=== PATIENT | male | born 1935 ===

== ENCOUNTER 2018-05-12 14:05 | Inpatient (IN) | payer MEDICARE ==
[~2018-05-12] VITALS: Ht 172.7 cm; Wt 82.1 kg
--- NOTE | 2018-05-12 14:34 | NUR ---
PT IS IN ROOM #2A. DR BEASLEY EVALUATED THE PT.
[2018-05-12 14:40] LABS: BASOPHILS # (AUTO) 0.1 K/uL (0.0-8.0); BASOPHILS % (AUTO) 1.2 % (0.0-2.0); EOSINOPHILS # (AUTO) 0.2 K/uL (0.0-0.7); EOSINOPHILS % (AUTO) 2.6 % (0.0-7.0); HEMATOCRIT 36.2 % (36.7-47.1); HEMOGLOBIN 12.1 g/dL (12.5-16.3); LYMPHOCYTES # (AUTO) 0.8 K/uL (20.0-40.0); LYMPHOCYTES % (AUTO) 13.3 % (20.5-51.5); MEAN CORPUSCULAR HEMOGLOBIN 32.3 uug (23.8-33.4); MEAN CORPUSCULAR HGB CONC 33 g/dL (32.5-36.3); MEAN CORPUSCULAR VOLUME 96.7 fL (73.0-96.2); MONOCYTES # (AUTO) 0.6 K/uL (2.0-10.0); NEUTROPHILS # (AUTO) 4.6 K/uL (1.8-8.9); NEUTROPHILS % (AUTO) 73.9 % (38.5-71.5); PLATELET COUNT (AUTO) 277 K/uL (152-348); RED BLOOD CELL COUNT(AUTO) 3.74 MIL/uL (4.06-5.63); WHITE BLOOD COUNT (AUTO) 6.2 K/uL (3.6-10.2)
[2018-05-12 14:52] LABS: CARBON DIOXIDE 19 mmol/L (21-32); CHLORIDE 105 mmol/L (98-107); CREATININE 1.9 mg/dL (0.6-1.3); GLUCOSE 109 mg/dL (74-106); POTASSIUM 4.8 mmol/L (3.5-5.1); UREA NITROGEN, BLOOD 44 mg/dL (7-18)
[2018-05-12 14:57] LABS: ALANINE AMINOTRANSFERASE 40 U/L (16-63); ALKALINE PHOSPHATASE 135 U/L (50-136); ASPARTATE AMINOTRANSFERASE 41 U/L (15-37); BILIRUBIN,DIRECT 0.1 mg/dL (0.0-0.2); BILIRUBIN,TOTAL 0.4 mg/dL (0.2-1.0); TOTAL PROTEIN, SERUM 6.4 g/dL (6.4-8.2)
[2018-05-12] MEDS ORDERED: AMIO200T4 PO (15:10)
[2018-05-12] MEDS ORDERED: ASPI81TA31 PO (15:10)
[2018-05-12] MEDS ORDERED: BISO5TAB2 PO ×2 (15:11→15:12)
[2018-05-12] MEDS ORDERED: ATOR40TA PO (15:11)
[2018-05-12] MEDS ORDERED: CYAN10009 GT (15:12)
[2018-05-12] MEDS ORDERED: ALBU2.5V38 NEB (15:13)
[2018-05-12] MEDS ORDERED: SACU1TAB PO (15:13)
[2018-05-12] MEDS ORDERED: FURO-152 PO (15:14)
[2018-05-12] MEDS ORDERED: FINA5TAB11 PO (15:14)
[2018-05-12] MEDS ORDERED: RANO500T3 PO (15:15)
[2018-05-12] MEDS ORDERED: TIOT18CA3 INH (15:15)
[2018-05-12] MEDS ORDERED: PANT40TA2 PO (15:15)
[2018-05-12] MEDS ORDERED: TRAM50TA2 PO (15:16)
[2018-05-12] MEDS ORDERED: FEBU40TA PO (15:16)
[2018-05-12] MEDS ORDERED: TAMS0.4C34 PO (15:16)
[2018-05-12] MEDS ORDERED: ZOLP5TAB8 PO (15:17)
[2018-05-12] MEDS ORDERED: IV NS 1000 ML 1,000 ML IV PRN (15:54)
--- NOTE | 2018-05-12 15:57 | NUR ---
PT WAS TRANSFERED TO ROOM #222. REPORT WAS GIVEN TO CAROL M/Roberto.
--- NOTE | 2018-05-12 15:58 | NUR ---
PRECEIVED PATIENT FROM ER, ADMITTED TO ROOM 222. AAOX4 NO ACUTE DISTRESS NOTED. DESEAN SPAIN NP AWARE. ORIENTED TO UNIT. NURSING ADMISSION ASSESSMENTS TO BE DONE. AWAITING MD ORDERS. CALL LIGHT PEDRO ESPOSITO WILL CONTINUE TO MONITOR CLOSELY.
[2018-05-12] MEDS ORDERED: TEMAZEPAM 15 MG CAPSULE PO PRN (16:00)
[2018-05-12] MEDS ORDERED: HYDROCODONE/APAP 5-325MG TABLET PO PRN (16:00)
[2018-05-12] MEDS ORDERED: Z GUARD REMEDY PASTE 57 GM TUBE TOP PRN (16:00)
[2018-05-12] MEDS ORDERED: HYDROCODONE/APAP 10-325 MG TABLET PO PRN (16:00)
[2018-05-12] MEDS ORDERED: ACETAMINOPHEN 325 MG TABLET PO PRN (16:00)
[2018-05-12] MEDS ORDERED: ONDANSETRON 4 MG/2 ML VIAL IV PRN (16:00)
[2018-05-12 16:11] VITALS: BP 132/58
[2018-05-12] MEDS: ATORVASTATIN 40 MG TABLET PO SCH (17:33)
--- NOTE | 2018-05-12 18:34 | NUR ---
PATIENT IN BE AWAKE, APPEARS TO BE COMFORTABLE. SEEN AND EXAMINED BY DR. PARK. ORDERS NOTED AND CARRIED OUT. BM X 1 NO COMPLAINTS OF PAIN/DISCOMFORT. ALL NEEDS ATTENDED AND ANTICIPATED. CALL LIGHT WITHIN REACH. WILL CONTINUE TO MONITOR CLOSELY.
--- NOTE | 2018-05-12 19:00 | NUR ---
RECEIVED IN BED ALERT ORIENTED, NO COMPLAIN OF PAIN AT THIS TIME. CALL LIGHT WITHIN REACH.
[2018-05-12] MEDS: IPRATROPIUM BROMIDE 0.5 MG/2.5 ML NEBU NEB SCH (19:22)
[2018-05-12 19:35] VITALS: BP 131/65
[2018-05-12] MEDS: BISOPROLOL FUMARATE 5 MG TABLET PO SCH (20:22)
[2018-05-13] MEDS: IPRATROPIUM BROMIDE 0.5 MG/2.5 ML NEBU NEB SCH ×4 (00:17→19:03)
[2018-05-13 03:39] VITALS: BP 130/56
[2018-05-13] MEDS: PANTOPRAZOLE SODIUM 40 MG TABLET.DR PO SCH (06:13)
--- NOTE | 2018-05-13 06:21 | NUR ---
PATIENT SLEPT MOST OF THE NIGHT, CONT ON PAIN MANAGEMENT ON R GROIN AND LEGS, NO SOB NO CHEST PAIN NOTED, USES URINAL FOR BLADDER ELIMINATION, AND BRP, CALL LIGHT WITHIN REACH.
[2018-05-13 06:49] LABS: BASOPHILS # (AUTO) 0.1 K/uL (0.0-8.0); BASOPHILS % (AUTO) 1.2 % (0.0-2.0); EOSINOPHILS # (AUTO) 0.2 K/uL (0.0-0.7); EOSINOPHILS % (AUTO) 4.1 % (0.0-7.0); HEMATOCRIT 35.3 % (36.7-47.1); LYMPHOCYTES # (AUTO) 0.8 K/uL (20.0-40.0); LYMPHOCYTES % (AUTO) 15.5 % (20.5-51.5); MEAN CORPUSCULAR HEMOGLOBIN 32.4 uug (23.8-33.4); MEAN CORPUSCULAR HGB CONC 34 g/dL (32.5-36.3); MONOCYTES # (AUTO) 0.5 K/uL (2.0-10.0); MONOCYTES % (AUTO) 9.2 % (0.0-11.0); NEUTROPHILS # (AUTO) 3.7 K/uL (1.8-8.9); PLATELET COUNT (AUTO) 267 K/uL (152-348); RED BLOOD CELL COUNT(AUTO) 3.71 MIL/uL (4.06-5.63); WHITE BLOOD COUNT (AUTO) 5.3 K/uL (3.6-10.2)
[2018-05-13 07:04] LABS: CARBON DIOXIDE 23 mmol/L (21-32); CHLORIDE 106 mmol/L (98-107); CREATININE 1.7 mg/dL (0.6-1.3); GLUCOSE 92 mg/dL (74-106); PHOSPHOROUS 3.8 mg/dL (2.5-4.9); POTASSIUM 4.7 mmol/L (3.5-5.1); UREA NITROGEN, BLOOD 40 mg/dL (7-18)
[2018-05-13 07:06] LABS: THYROID STIMULATING HORMONE 5.251 mIU/mL (0.358-3.740)
--- NOTE | 2018-05-13 07:15 | NUR ---
RECEIVED PATIENT ON BED ASLEEP, APPEARS COMFORTABLE. NO ACUTE DISTRESS NOTED. NO SOB. CONTINENT, URINAL AT BEDSIDE. COMFORT MEASURES PROVIDED. CALL LIGHT WITHIN REACH. WILL CONTINUE TO MONITOR CLOSELY.
[2018-05-13] MEDS: ALBUTEROL SULFATE 2.5 MG/3 ML NEBU NEB PRN (07:38)
[2018-05-13] MEDS: FUROSEMIDE 20 MG TABLET PO SCH (08:14)
[2018-05-13] MEDS: FINASTERIDE 5 MG TABLET PO SCH (08:14)
[2018-05-13] MEDS: ASPIRIN 81 MG TAB.CHEW PO SCH (08:14)
[2018-05-13] MEDS: CYANOCOBALAMIN 1,000 MCG TABLET PO SCH (08:14)
[2018-05-13] MEDS: BISOPROLOL FUMARATE 5 MG TABLET PO SCH ×2 (08:26→20:32)
[2018-05-13] MEDS ORDERED: RANOLAZINE 500 MG TAB.ER.12H PO SCH (09:00)
[2018-05-13] MEDS ORDERED: PANTOPRAZOLE SODIUM 40 MG TABLET.DR PO SCH (09:00)
--- NOTE | 2018-05-13 09:10 | NUR ---
HELD ZEBETA. PATIENTS HR RANGING FROM 34-39. ASYMPTOMATIC. WILL CONTINUE TO MONITOR CLOSELY
[2018-05-13 10:17] LABS: CHOLESTEROL 131 mg/dL (<200); HDL CHOLESTEROL 24 mg/dL (40-60); TRIGLYCERIDES 127 MG/DL (30-150)
[2018-05-13 12:00] VITALS: BP 114/44
[2018-05-13 12:34] LABS: *BILIRUBIN,URIN NEGATIVE (NEGATIVE); *BLOOD, URINE Trace-lysed (NEGATIVE); *CLARITY,URINE CLEAR (CLEAR); *COLOR,URINE YELLOW (YELLOW); *KETONES,URINE NEGATIVE (NEGATIVE); *PROTEIN,URINE NEGATIVE (NEGATIVE); *UROBILINOGEN,URINE 0.2 E.U./dl (NORMAL); LEUKOCYTE ESTERASE ,URINE NEGATIVE (NEGATIVE); NITRITE, URINE NEGATIVE (NEGATIVE); PH,URINE 5.5 (5.0-8.0); UGLUCOSE NEGATIVE (NEGATIVE)
[2018-05-13 12:43] LABS: BACTERIA,URINE FEW /HPF (NONE SEEN); RBC,URINE 0-3 /HPF (0-3); SQUAMOUS EPITHELIAL CELL,UR FEW /HPF (NONE SEEN)
[2018-05-13 12:47] LABS: *CREATININE,URINE 76.9 mg/dL (30-125); *URINE TOTAL PROTEIN RANDOM 19.3 mg/dL (<150/24HR)
[2018-05-13 15:35] VITALS: BP 123/69
--- NOTE | 2018-05-13 16:30 | NUR ---
RECEIVED CALL FROM [facility]. PATIENT POSITIVE FOR MRSA NARES. NOTIFIED DESEAN RACK ROOM WORKER W/ ORDERS FOR BACTROBAN OINTMENT, NS ,Q12. ORDERS NOTED AND CARRIED OUT.
[2018-05-13] MEDS: ATORVASTATIN 40 MG TABLET PO SCH (17:01)
--- NOTE | 2018-05-13 18:08 | NUR ---
PATIENT IN BED ASLEEP, APPEARS TO BE COMFORTABLE. ON CONTACT ISOLATION FOR MRSA NARES. NO COMPLAINTS OF PAIN/DISCOMFORT. ALL NEEDS ATTENDED AND ANTICIPATED. CALL LIGHT WITHIN REACH. WILL CONTINUE TO MONITOR CLOSELY.
--- NOTE | 2018-05-13 19:00 | NUR ---
RECEIVED PATIENT IN BED ALERT ORIENTED, USES URINAL FOR BLADDER ELIMINATION, ON CONTACT ISOLATION FOR MRSA OF NARES, NO COMPLAIN OF PAIN AT THIS TIME. CONT TO MONITOR.
[2018-05-13 20:17] VITALS: BP 125/51
[2018-05-13] MEDS: MUPIROCIN 2% OINT 22 GM TUBE NS SCH (20:29)
[2018-05-13] MEDS: TAMSULOSIN HCL 0.4 MG CAP.SR.24H PO SCH (20:29)
[2018-05-14] MEDS: IPRATROPIUM BROMIDE 0.5 MG/2.5 ML NEBU NEB SCH ×4 (00:30→18:03)
[2018-05-14 04:46] VITALS: BP 114/54
[2018-05-14 06:15] LABS: BASOPHILS # (AUTO) 0.1 K/uL (0.0-8.0); BASOPHILS % (AUTO) 0.8 % (0.0-2.0); EOSINOPHILS # (AUTO) 0.2 K/uL (0.0-0.7); EOSINOPHILS % (AUTO) 3.2 % (0.0-7.0); HEMATOCRIT 35.1 % (36.7-47.1); HEMOGLOBIN 11.8 g/dL (12.5-16.3); LYMPHOCYTES # (AUTO) 0.8 K/uL (20.0-40.0); LYMPHOCYTES % (AUTO) 12.4 % (20.5-51.5); MEAN CORPUSCULAR HEMOGLOBIN 32.2 uug (23.8-33.4); MEAN CORPUSCULAR HGB CONC 34 g/dL (32.5-36.3); MEAN CORPUSCULAR VOLUME 95.7 fL (73.0-96.2); MONOCYTES # (AUTO) 0.5 K/uL (2.0-10.0); MONOCYTES % (AUTO) 8.4 % (0.0-11.0); NEUTROPHILS # (AUTO) 4.6 K/uL (1.8-8.9); NEUTROPHILS % (AUTO) 75.2 % (38.5-71.5); PLATELET COUNT (AUTO) 269 K/uL (152-348); RED BLOOD CELL COUNT(AUTO) 3.67 MIL/uL (4.06-5.63); WHITE BLOOD COUNT (AUTO) 6.1 K/uL (3.6-10.2)
[2018-05-14 06:24] LABS: ALANINE AMINOTRANSFERASE 40 U/L (16-63); ALKALINE PHOSPHATASE 136 U/L (50-136); ASPARTATE AMINOTRANSFERASE 60 U/L (15-37); BILIRUBIN,TOTAL 0.4 mg/dL (0.2-1.0); CARBON DIOXIDE 22 mmol/L (21-32); CHLORIDE 109 mmol/L (98-107); CREATININE 1.7 mg/dL (0.6-1.3); GLUCOSE 101 mg/dL (74-106); MAGNESIUM 1.9 mg/dL (1.8-2.4); PHOSPHOROUS 3.9 mg/dL (2.5-4.9); POTASSIUM 4.3 mmol/L (3.5-5.1); TOTAL PROTEIN, SERUM 6.2 g/dL (6.4-8.2); UREA NITROGEN, BLOOD 35 mg/dL (7-18)
--- NOTE | 2018-05-14 06:32 | NUR ---
PATIENT SLEEP WELL LAST NIGHT, NO SOB NO CHEST PAIN, USES URINAL FOR BLADDER ELIMINATIONS, KEPT CLEAN AND DRY, REMAIN IN CONTACT ISOLATION FOR MRSA NARES, CALL LIGHT WITHIN REACH.
[2018-05-14] MEDS: PANTOPRAZOLE SODIUM 40 MG TABLET.DR PO SCH (06:35)
[2018-05-14] MEDS: MUPIROCIN 2% OINT 22 GM TUBE NS SCH ×2 (08:53→20:27)
[2018-05-14] MEDS: FINASTERIDE 5 MG TABLET PO SCH (08:54)
[2018-05-14] MEDS: CYANOCOBALAMIN 1,000 MCG TABLET PO SCH (08:54)
[2018-05-14] MEDS: ASPIRIN 81 MG TAB.CHEW PO SCH (08:55)
[2018-05-14] MEDS: BISOPROLOL FUMARATE 5 MG TABLET PO SCH ×2 (08:55→20:30)
[2018-05-14] MEDS: FUROSEMIDE 20 MG TABLET PO SCH (08:56)
[2018-05-14] MEDS ORDERED: AMIODARONE HCL 200 MG TABLET PO SCH (09:00)
[2018-05-14 11:20] VITALS: BP 130/57
[2018-05-14 15:24] VITALS: BP 125/58
[2018-05-14] MEDS: ATORVASTATIN 40 MG TABLET PO SCH (17:11)
--- NOTE | 2018-05-14 17:54 | NUR ---
SBAR report received this morning, Pt assessed, no acute distress or SOB evident. Pt compliant with all routinely scheduled medication administration. All safety and comfort needs met promptly this shift. Call light within reach. Pt teaching provided on calling for assistance for toileting needs. Fall precautions in place. Will continue to monitor and endorse to on coming computer aide.
[2018-05-14] MEDS: ALBUTEROL SULFATE 2.5 MG/3 ML NEBU NEB PRN (18:03)
--- NOTE | 2018-05-14 19:30 | NUR ---
Received patient in stable condition. Patient noted lying in bed comfortably with no signs of distress. Pertinent assessment completed. at start of shift. Patient is A/Ox3-4 & able to make his needs known. 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 Vital signs within range at start of shift. Bed alarm placed on at start of shift. Encouraged patient to use call light when needing to get out of bed d/t Hx of falls. Patient complaining of constipation at start of shift. Will f/u with MD or [employer] & get order for a stool softener/laxative & monitor for BM's. Bed placed in low position, locked, x2 side rails up. Call light in reach. Will continue to monitor through shift.
[2018-05-14 19:36] VITALS: BP 136/59
[2018-05-14] MEDS: TAMSULOSIN HCL 0.4 MG CAP.SR.24H PO SCH (20:28)
--- NOTE | 2018-05-14 20:30 | NUR ---
New order from [facility] for Colace 100mg PO BID, & Mag citrate PO x1 dose. Will carry out order & continue to monitor for BMs.
[2018-05-14] MEDS ORDERED: MAGNESIUM CITRATE 296 ML BOTTLE PO ONE (21:00)
[2018-05-14] MEDS ORDERED: MAGNESIUM CITRATE 296 ML BOTTLE ONE (21:28)
[2018-05-15] MEDS: IPRATROPIUM BROMIDE 0.5 MG/2.5 ML NEBU NEB SCH ×3 (01:20→12:49)
[2018-05-15 03:48] VITALS: BP 126/48
[2018-05-15] MEDS: ALBUTEROL SULFATE 2.5 MG/3 ML NEBU NEB PRN (04:40)
[2018-05-15] MEDS: PANTOPRAZOLE SODIUM 40 MG TABLET.DR PO SCH (06:10)
--- NOTE | 2018-05-15 06:27 | NUR ---
Patient had x3 BMs during the night. Medication affective for constipation. No acute distress noted during shift. Vital signs within range. All needs attended to. Patient kept clean, dry, changed per soiling. Skin care provided. Safety measures implemented. Bed alarm placed on through out shift. Encouraged patient to use call light. Patient compliant with care. Will endorse to day shift nurse.
[2018-05-15] MEDS: FUROSEMIDE 20 MG TABLET PO SCH (08:51)
[2018-05-15] MEDS: FINASTERIDE 5 MG TABLET PO SCH (08:51)
[2018-05-15] MEDS: ASPIRIN 81 MG TAB.CHEW PO SCH (08:51)
[2018-05-15] MEDS: CYANOCOBALAMIN 1,000 MCG TABLET PO SCH (08:52)
[2018-05-15] MEDS: BISOPROLOL FUMARATE 5 MG TABLET PO SCH (08:53)
[2018-05-15] MEDS: MUPIROCIN 2% OINT 22 GM TUBE NS SCH (08:54)
[2018-05-15] MEDS ORDERED: DOCUSATE SODIUM 100 MG/10 ML LIQUID UDC PO SCH (09:00)
[2018-05-15 11:13] VITALS: BP 116/48
--- NOTE | 2018-05-15 13:40 | NUR ---
PATIENT DC TO [facility] VIA AMBULANCE. REPORT GIVEN TO LAUREN MEDINA AT THE FACILITY. PT. CONDITION STABLE UPON DC. VSS. DISCHARGED WITH NO IV ACCESS. PICTURES OF SKIN TAKEN AND PLACED IN CHART. DISCHARGE INSTRUCTIONS GIVEN. PT. DISCHARGED WITH ALL BELONGINGS ACCOUNTED FOR.
== END 2018-05-15 14:00 | DRG 683 ==
LOC: ER 14:10 → MED 15:37
PROVIDERS: ADMIT Nurse Practitioner Acute Care; ATTEND Nurse Practitioner Acute Care
DX: N17.0 Acute kidney failure with tubular necrosis (principal); I13.0 Hypertensive heart and chronic kidney disease with heart failure and stage 1 through stage 4 chronic kidney disease, or unspecified chronic kidney disease; I50.22 Chronic systolic (congestive) heart failure; E44.0 Moderate protein-calorie malnutrition; R53.1 Weakness; N18.9 Chronic kidney disease, unspecified; I25.10 Atherosclerotic heart disease of native coronary artery without angina pectoris; E03.9 Hypothyroidism, unspecified; E78.5 Hyperlipidemia, unspecified; I25.5 Ischemic cardiomyopathy; J44.9 Chronic obstructive pulmonary disease, unspecified; M19.90 Unspecified osteoarthritis, unspecified site; Z87.891 Personal history of nicotine dependence; N40.0 Benign prostatic hyperplasia without lower urinary tract symptoms; Z95.810 Presence of automatic (implantable) cardiac defibrillator; R29.6 Repeated falls; E88.09 Other disorders of plasma-protein metabolism, not elsewhere classified; M62.50 Muscle wasting and atrophy, not elsewhere classified, unspecified site; Z68.27 Body mass index [BMI] 27.0-27.9, adult; M81.0 Age-related osteoporosis without current pathological fracture; M10.9 Gout, unspecified; Z95.1 Presence of aortocoronary bypass graft; Z96.641 Presence of right artificial hip joint
CPT/HCPCS: 36415; 71045; 72170; 73110; 76770; 83735; 84100; 84156; 84300; 84443; 84481; 85025; 85730; 93005; 93307; 94640; 94664; 97110; 97116; 97165; 97530; A4663; J3590